=== PATIENT | male | born 1980 | race Caucasian/White ===

== ENCOUNTER 2016-11-30 03:25 | Emergency (ER) | payer OTHER ==
[2016-11-30 03:31] VITALS: BP 114/79; PULSE 74; TEMP 98; BMI 30.3
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
--- NOTE | 2016-11-30 04:21 | PDOC ---
*Physical Exam - Vital Signs Last Vital Signs Temp Pulse Resp BP Pulse Ox 98.0 F 74 18 114/79 99 11/30/16 03:29 11/30/16 03:29 11/30/16 03:29 11/30/16 03:29 11/30/16 03:29 Medical Decision Making - Medical Decision Making 11/30/16 04:21 agree with care from ALLISON Padron *DC/Admit/Observation/Transfer Diagnosis at time of Disposition: Low back pain - Discharge Dispostion Disposition: HOME Condition at time of disposition: Good - Referrals Referrals: Minna Leonardo [Primary Care Provider] - - Patient Instructions Printed Discharge Instructions: DI for Low Back Pain Additional Instructions: Discharge Instructions: -Take Motrin if needed for pain -Follow up with employee health -return to the ER with any worsening or concerning symptoms - Post Discharge Activity Work/School Note: Back to Work
== END 2016-11-30 04:30 | disposition home or self-care (01) ==
LOC: JER 03:25
DX: M54.5 Low back pain (principal); W18.39XA Other fall on same level, initial encounter; Y35.811A Legal intervention involving manhandling, law enforcement official injured, initial encounter; Y93.89 Activity, other specified; Y92.89 Other specified places as the place of occurrence of the external cause; Y99.0 Civilian activity done for income or pay
CPT/HCPCS: 99281-25

== ENCOUNTER 2017-08-27 01:27 | Emergency (ER) | payer OTHER ==
[2017-08-27 01:42] VITALS: BP 142/97; PULSE 72; TEMP 98.1; BMI 29.7
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
== END 2017-08-27 02:11 | disposition home or self-care (01) ==
LOC: JER 01:27
DX: Z77.21 Contact with and (suspected) exposure to potentially hazardous body fluids (principal); Y35.891A Legal intervention involving other specified means, law enforcement official injured, initial encounter; Y93.89 Activity, other specified; Y92.89 Other specified places as the place of occurrence of the external cause; Y99.0 Civilian activity done for income or pay
CPT/HCPCS: 99281-25

== ENCOUNTER 2017-10-28 04:23 | Emergency (ER) | payer OTHER ==
[2017-10-28 04:43] VITALS: BP 125/74; PULSE 77; TEMP 97.5; BMI 30.3
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
== END 2017-10-28 05:24 | disposition home or self-care (01) ==
LOC: JER 04:23 → SUPCPDRO 04:23 → JER 05:24
DX: S39.012A Strain of muscle, fascia and tendon of lower back, initial encounter (principal); M54.16 Radiculopathy, lumbar region; Y35.811A Legal intervention involving manhandling, law enforcement official injured, initial encounter; Y93.89 Activity, other specified; Y92.89 Other specified places as the place of occurrence of the external cause; Y99.0 Civilian activity done for income or pay
CPT/HCPCS: 99281-25

== ENCOUNTER 2022-03-07 14:10 | Emergency (ER) | payer OTHER ==
[2022-03-07 14:38] VITALS: BP 118/81; PULSE 64; RESP 16; TEMP 98.9; BMI 30.9
== END 2022-03-07 14:57 | disposition home or self-care (01) ==
LOC: FER 14:10
DX: Z00.00 Encounter for general adult medical examination without abnormal findings (principal)
CPT/HCPCS: 99281-25